=== PATIENT | female | born 1950 | race Hispanic/Latino ===

== ENCOUNTER 2023-01-10 07:41 | Observation (INO) | payer OTHER ==
[2023-01-06 13:03] LABS: BASOPHILS % (AUTO) 0.5 % (0.0-5.0); HEMATOCRIT 40.9 % (36-48); LYMPHOCYTES % (AUTO) 39.9 % (21.0-51.0); MEAN CORPUSCULAR HEMOGLOBIN 31.1 pg (27.0-33.0); MEAN CORPUSCULAR HGB CONC 31.8 g/dL (32.0-36.0); MEAN CORPUSCULAR VOLUME 97.8 fL (79-99); MONOCYTES % (AUTO) 5.9 % (3.0-13.0); NEUTROPHILS % (AUTO) 52.3 % (40.0-77.0); PLATELET COUNT (AUTO) 307 K/uL (130-400); RED BLOOD CELL COUNT(AUTO) 4.18 MIL/uL (4.00-5.50); WHITE BLOOD COUNT (AUTO) 9.9 K/uL (4.8-10.8)
[2023-01-06 13:20] LABS: CREATININE 0.7 mg/dL (0.5-1.5); INR 1.03 (0.85-1.15); POTASSIUM 3.9 mmol/L (3.5-5.1); PROTHROMBIN TIME 11.2 SEC (9.6-11.6)
[2023-01-06 13:35] VITALS: BP 153/74
[2023-01-10] VITALS (32 sets, daily range): BP systolic 131–184; BP diastolic 61–84
[~2023-01-10] VITALS: Ht 157.5 cm; Wt 83.3 kg
[~2023-01-10 07:41] MED LIST: CHLO25TA3 PO; LISI20TA24 PO; METF-446 PO; ROSU10TA28 PO
[2023-01-10] MEDS ORDERED: 0.9%NACL 1000ML 1,000 ML IV ONE (08:37)
[2023-01-10] MEDS: CEFAZOLIN SODIUM 2 GM VIAL ONE ×2 (09:03→13:01)
[2023-01-10] MEDS ORDERED: METO25TA6 PO (11:09)
[2023-01-10] MEDS ORDERED: GLYCOPYRROLATE 1 MG/5 ML SYRINGE ONE (12:38)
[2023-01-10] MEDS ORDERED: FENTANYL CITRATE PF 50 MCG/1 ML 2ML VIAL ONE ×3 (12:38→16:15)
[2023-01-10] MEDS ORDERED: LIDOCAINE PF 100MG/5ML (2%) SYRINGE 5ML ONE (12:38)
[2023-01-10] MEDS ORDERED: PROPOFOL 10 MG/ML 20ML VIAL IV ONE (12:38)
[2023-01-10] MEDS ORDERED: ROCURONIUM 10MG/1ML SYR 10 MG/ML ML ONE (12:38)
[2023-01-10] MEDS ORDERED: FAMOTIDINE 20MG VIAL IV ONE (12:40)
[2023-01-10] MEDS ORDERED: HYDROMORPHONE 1 MG INJ ONE (12:40)
[2023-01-10] MEDS ORDERED: TRANEXAMIC ACID 1000MG/10ML ONE (13:07)
[2023-01-10] MEDS ORDERED: ROPIVACAINE 0.5% 5MG/ML 30ML IJ ONE (13:56)
[2023-01-10] MEDS ORDERED: NEOSTIGMINE 5MG/5ML SYR IV ONE (14:36)
[2023-01-10] MEDS ORDERED: POTASSIUM CHLORIDE 20MEQ/100ML 100 ML IV PRN (15:00)
[2023-01-10] MEDS ORDERED: MORPHINE 4 MG SYG IVP PRN (15:00)
[2023-01-10] MEDS ORDERED: HYDROCODONE/ACETAMINOPHEN 5/325 MG TAB PO PRN (15:00)
[2023-01-10] MEDS ORDERED: KCL 20 MEQ ERTAB PO PRN (15:00)
[2023-01-10] MEDS ORDERED: ONDANSETRON 4MG INJ IVP PRN (15:00)
[2023-01-10] MEDS: ACETAMINOPHEN 1,000 MG/100 ML VIAL IV SCH ×2 (16:27→20:48)
[2023-01-10] MEDS ORDERED: HYDRALAZINE 20MG/ML VIAL ONE (16:36)
[2023-01-10] MEDS: METFORMIN HCL 500 MG TABLET PO SCH (17:00)
[2023-01-10] MEDS: IBUPROFEN 800MG + NS 250ML IV SCH (19:07)
[2023-01-10] MEDS: CEFAZOLIN SODIUM 1 GM VIAL IVP SCH (20:32)
[2023-01-10] MEDS: 0.9%NACL 1000ML 1,000 ML IV SCH (20:32)
[2023-01-10] MEDS: METOPROLOL TARTRATE 25 MG TAB PO SCH (20:48)
[2023-01-10] MEDS: FAMOTIDINE 20MG TAB PO SCH (20:48)
[2023-01-10] MEDS: INSULIN HUMULIN R 100 UNIT/ML 3ML SQ SCH (20:52)
[2023-01-10] MEDS ORDERED: NON-FORMULARY MEDICATION 1 EACH (Metformin HCl 1,000 MG) PO SCH (21:00)
[2023-01-10] MEDS ORDERED: ATORVASTATIN 20 MG TABLET PO SCH (21:00)
[2023-01-11] MEDS: 0.9%NACL 1000ML 1,000 ML IV SCH ×2 (01:00→11:00)
[2023-01-11] MEDS: IBUPROFEN 800MG + NS 250ML IV SCH ×2 (01:46→08:34)
[2023-01-11] MEDS: ACETAMINOPHEN 1,000 MG/100 ML VIAL IV SCH (03:32)
[2023-01-11] MEDS: CEFAZOLIN SODIUM 1 GM VIAL IVP SCH (03:36)
[2023-01-11 03:54] VITALS: BP 144/68
[2023-01-11 05:32] LABS: MEAN CORPUSCULAR HEMOGLOBIN 31.3 pg (27.0-33.0); MEAN CORPUSCULAR HGB CONC 32.2 g/dL (32.0-36.0); MEAN CORPUSCULAR VOLUME 97.3 fL (79-99); RED BLOOD CELL COUNT(AUTO) 3.29 MIL/uL (4.00-5.50); RED CELL DISTRIBUTION WIDTH 13.7 % (11.0-15.5); WHITE BLOOD COUNT (AUTO) 7.8 K/uL (4.8-10.8)
[2023-01-11] MEDS: INSULIN HUMULIN R 100 UNIT/ML 3ML SQ SCH ×3 (05:37→16:30)
[2023-01-11 06:02] LABS: CREATININE 0.7 mg/dL (0.5-1.5)
[2023-01-11 06:07] LABS: POTASSIUM 2.9 mmol/L (3.5-5.1)
[2023-01-11] MEDS: POTASSIUM CHLORIDE 10% ELIXIR 20 MEQ/15 ML UDCUP PO PRN ×2 (06:16→06:17)
[2023-01-11 08:11] VITALS: BP 141/64
[2023-01-11] MEDS: METFORMIN HCL 500 MG TABLET PO SCH ×2 (08:34→17:03)
[2023-01-11] MEDS: METOPROLOL TARTRATE 25 MG TAB PO SCH (08:34)
[2023-01-11] MEDS: FAMOTIDINE 20MG TAB PO SCH (08:34)
[2023-01-11] MEDS: HYDROCODONE/ACETAMINOPHEN 10/325 MG TAB PO PRN ×2 (08:34→17:04)
[2023-01-11] MEDS ORDERED: LISINOPRIL 20 MG TABLET PO SCH (09:00)
[2023-01-11] MEDS ORDERED: POLYETHYLENE GLYCOL 3350 17 GM POWD.PACK PO SCH (09:00)
[2023-01-11] MEDS ORDERED: HYDROCHLOROTHIAZIDE 25 MG TABLET PO SCH (09:00)
[2023-01-11 12:00] VITALS: BP 126/59
[2023-01-11 16:30] VITALS: BP 174/75
[2023-01-11] MEDS ORDERED: ASPIRIN 81 MG EC TAB PO SCH (21:00)
[2023-01-13] MEDS ORDERED: BISACODYL 10 MG SUPP.RECT RC PRN (15:00)
== END 2023-01-11 17:30 | disposition home or self-care (01) ==
LOC: DAH 07:41 → DAHIP 07:52 → 4DH 18:08
PROVIDERS: ADMIT Orthopaedic Surgery; ATTEND Orthopaedic Surgery
DX: M17.12 Unilateral primary osteoarthritis, left knee (principal); Z20.822 Contact with and (suspected) exposure to COVID-19; E66.9 Obesity, unspecified; E11.9 Type 2 diabetes mellitus without complications; I10 Essential (primary) hypertension; E78.5 Hyperlipidemia, unspecified; Z68.33 Body mass index [BMI] 33.0-33.9, adult; Z96.652 Presence of left artificial knee joint; Z79.899 Other long term (current) drug therapy
CPT/HCPCS: 80048 ×2; 85025; 85610; 85730; 87426; 36415 ×2; 87641; 64447; 27447; 96376 ×2; 96365; 96366 ×2; 96375; 82948 ×7; 73562; 97039 ×2; 85027; 97161; 97116 ×2; 97530; A6260; G0378 ×25; A4663; J7030 ×2; J3490 ×3; J3010 ×3; J0690 ×3; J1170; J2710; J2001; J0360; J2704; J2795; J1741 ×3; A6223; G0168; A4649 ×3; A6212; C1776 ×4; A5120; A4215; A4223; A4222; A4221